=== PATIENT | female | born 1950 | race African-American/Black ===

== ENCOUNTER 2018-09-03 14:26 | Emergency (ER) | payer MEDICARE, BC ==
[~2018-09-03] VITALS: Ht 154.9 cm; Wt 93.0 kg
[~2018-09-03 14:26] MED LIST: AZOR
[2018-09-03] MEDS ORDERED: KETOROLAC 30MG/ML VIAL IM ONE (18:00)
[2018-09-03 18:07] VITALS: BP 145/79
== END 2018-09-03 18:44 | disposition home or self-care (01) ==
LOC: ER 14:26
DX: M54.40 Lumbago with sciatica, unspecified side (principal); M25.562 Pain in left knee; I10 Essential (primary) hypertension
CPT/HCPCS: 96372; 99283; J1885

== ENCOUNTER 2019-02-15 21:00 | Emergency (ER) | payer BC, MEDICARE ==
[~2019-02-15] VITALS: Ht 154.9 cm; Wt 91.0 kg
[2019-02-15 23:00] VITALS: BP 131/74
== END 2019-02-15 23:00 | disposition home or self-care (01) ==
LOC: ER 21:00
DX: T17.228A Food in pharynx causing other injury, initial encounter (principal); I10 Essential (primary) hypertension; X58.XXXA Exposure to other specified factors, initial encounter; Y93.89 Activity, other specified; Y92.89 Other specified places as the place of occurrence of the external cause; Y99.8 Other external cause status; Z79.899 Other long term (current) drug therapy
CPT/HCPCS: 42809; 99284

== ENCOUNTER 2024-10-31 10:24 | Emergency (ER) | payer BC ==
[~2024-10-31] VITALS: Ht 152.4 cm; Wt 73.9 kg
[2024-10-31 10:38] VITALS: BP 151/102; PULSE 74; RESP 16; TEMP 37.1; O2SAT 100
[2024-10-31] MEDS ORDERED: ACET-2708 MT (11:04)
== END 2024-10-31 12:04 | disposition home or self-care (01) ==
LOC: ER 10:24
DX: M25.561 Pain in right knee (principal); I10 Essential (primary) hypertension; W18.30XA Fall on same level, unspecified, initial encounter; Y93.89 Activity, other specified; Y92.89 Other specified places as the place of occurrence of the external cause; Y99.8 Other external cause status
CPT/HCPCS: 73562; 99283